=== PATIENT | male | born 1990 | race Caucasian/White ===

== ENCOUNTER 2019-07-26 18:56 | Inpatient (IN) ==
[2019-07-26 19:46] LABS: Basophils % 0.1 %; Hematocrit 49.2 % (37.5-50.1); Hemoglobin 16.6 g/dL (12.9-16.9); Immature Granulocytes % 0.3 % (0-4); Lymphocytes # 1.9 K/mcL (0.6-4.6); Lymphocytes % 20.1 %; Mean Corpuscular HGB Conc 33.7 g/dL (31.6-35.5); Mean Corpuscular Hemoglobin 29.7 pg (28.0-33.3); Mean Platelet Volume 10.5 fL (9.4-12.4); Monocytes # 0.7 K/mcL (0.0-1.3); Monocytes % 7.2 %; Platelet Count 242 K/mcL (140-400); Red Blood Count 5.59 M/mcL (4.19-5.50); Segmented Neutrophils % 72.3 %; White Blood Count 9.7 K/mcL (4.3-11.1)
[2019-07-26 19:46] LABS: Bilirubin,Urine Negative (Negative); Blood,Urine Negative (Negative); Clarity,Urine Clear (Clear); Color,Urine Dark Yellow (Yellow); Glucose,Urine (UA) Normal (Normal); Ketones,Urine 40 mg/dL (Negative); Leukocyte Esterase,Urine Negative (Negative); Nitrite,Urine Negative (Negative); Protein,Urine 100 mg/dL (Neg-Trace); Specific Gravity,Urine > 1.030 (1.010-1.025); Urobilinogen,Urine Normal (Normal)
[2019-07-26 19:47] LABS: Bacteria,Urine None Seen per hpf (None-Few); Hyaline Casts,Urine Moderate per lpf (None-Few); RBC,Urine 0-3 per hpf (0-3); Squamous Epithelial Cell,Urine Many per lpf (None-Few)
[2019-07-26 19:57] LABS: Amphetamine Screen,Urine Positive ng/mL (Cutoff=1000); Barbiturate Screen,Urine Negative ng/mL (Cutoff=200); Benzodiazepines Screen,Urine Negative ng/mL (Cutoff=200); Cannabinoid Screen,Urine Positive ng/mL (Cutoff = 50); Cocaine Screen,Urine Negative ng/mL (Cutoff= 300); Opiate Screen,Urine Negative ng/mL (Cutoff=300); Phencyclidine Screen,Urine Negative ng/mL (Cutoff=25)
[2019-07-26 20:33] LABS: Thyroid Stimulating Hormone 0.997 mcIU/mL (0.340-5.600)
[2019-07-26 20:42] LABS: Acetaminophen < 10 mcg/mL (10-20); Alanine Aminotransferase 93 Units/L (7-52); Albumin 4.8 g/dL (3.5-5.7); Albumin/Globulin Ratio 1.6 (1.1-2.2); Alkaline Phosphatase 99 Units/L (34-104); Aspartate Amino Transferase 91 Units/L (13-39); BUN/Creatinine Ratio 12 (6-26); Bilirubin,Total 0.9 mg/dL (0.3-1.0); Blood Urea Nitrogen 10 mg/dL (6-20); Calcium 9.5 mg/dL (8.6-10.3); Carbon Dioxide 16 mEq/L (23-29); Chloride 107 mEq/L (98-107); Ethanol < 10 mg/dL (Less than 10); Glucose 114 mg/dL (70-105); Osmolality,Calculated 286 (280-300); Potassium 3.6 mEq/L (3.5-5.1); Salicylate < 2.5 mg/dL (15.0-30.0); Sodium 138 mEq/L (136-145); Total Protein 7.8 g/dL (6.4-8.9); eGFR For African Americans > 60 (> 60); eGFR For Non-African Americans > 60 (> 60)
[2019-07-26] MEDS ORDERED: OLANZapine 10 MG VIAL IM ONE ×2 (22:03→23:03)
[2019-07-26] MEDS ORDERED: *HR* Water for inj. (sterile) Vial IM ONE ×2 (22:15→23:15)
[2019-07-26] MEDS ORDERED: *HR* Buprenorphine HCl 8 MG TAB.SUBL SL STA (22:40)
[2019-07-26] MEDS ORDERED: MOM Conc 10 ML UD.LIQ PO PRN (23:16)
[2019-07-26] MEDS ORDERED: Nicotine 2 MG GUM BC PRN (23:16)
[2019-07-26] MEDS ORDERED: haloperidoL 5 MG TABLET PO PRN (23:16)
[2019-07-26] MEDS ORDERED: Acetaminophen 325 MG TABLET PO PRN (23:16)
[2019-07-26] MEDS ORDERED: Mag Hydrox/Al Hydrox/Simeth 30 ML UDC PO PRN (23:16)
[2019-07-26] MEDS ORDERED: Haloperidol Lactate 5 MG/ML VIAL IM PRN (23:16)
[2019-07-26] MEDS ORDERED: traZODone 50 MG TABLET PO PRN (23:16)
[2019-07-27] MEDS: hydrOXYzine pamoate 25 MG CAPSULE PO PRN ×2 (00:20→22:50)
[2019-07-27] MEDS: Nicotine 21 MG PATCH.TD24 TD SCH (10:52)
[2019-07-27] MEDS: carvediloL 6.25 MG TABLET PO SCH ×2 (10:53→18:51)
[2019-07-27] MEDS: Loratadine 10 MG TABLET PO SCH (10:53)
[2019-07-27] MEDS: Fluticasone Propionate Nasal 50 MCG/SPRAY BOTTLE NS SCH (14:04)
[2019-07-27] MEDS: OLANZapine 5 MG TAB.RAPDIS PO SCH (14:07)
[2019-07-27] MEDS: *HR* Buprenorphine HCl 8 MG TAB.SUBL SL SCH ×2 (14:08→20:55)
[2019-07-27] MEDS ORDERED: OLANZapine 10 MG TAB.RAPDIS PO SCH (21:00)
[2019-07-28] MEDS: Loratadine 10 MG TABLET PO SCH (08:22)
[2019-07-28] MEDS: Nicotine 21 MG PATCH.TD24 TD SCH (08:22)
[2019-07-28] MEDS: OLANZapine 5 MG TAB.RAPDIS PO SCH (08:23)
[2019-07-28] MEDS: *HR* Buprenorphine HCl 8 MG TAB.SUBL SL SCH (08:23)
[2019-07-28] MEDS: carvediloL 6.25 MG TABLET PO SCH (08:23)
[2019-07-28] MEDS: Fluticasone Propionate Nasal 50 MCG/SPRAY BOTTLE NS SCH (08:25)
[2019-07-28 10:10] VITALS: BP 129/90
== END 2019-07-28 11:25 | disposition home or self-care (01) | DRG 753 ==
LOC: EMEROOARM 18:56 → 1ANU 23:12
PROVIDERS: ADMIT Psychiatry & Neurology Psychiatry; ATTEND Psychiatry & Neurology Psychiatry

== ENCOUNTER 2020-05-14 15:47 | Inpatient (IN) ==
[2020-05-14 17:06] LABS: Estimated Average Glucose 105 mg/dl; Hemoglobin A1C 5.3 %
[2020-05-14 17:13] LABS: Bilirubin,Urine Negative (Negative); Blood,Urine Negative (Negative); Clarity,Urine Clear (Clear); Color,Urine Yellow (Yellow); Glucose,Urine (UA) Normal (Normal); Ketones,Urine Negative (Negative); Leukocyte Esterase,Urine Negative (Negative); Nitrite,Urine Negative (Negative); Protein,Urine Trace mg/dL (Neg-Trace); Specific Gravity,Urine 1.028 (1.010-1.025); Urobilinogen,Urine Normal (Normal)
[2020-05-14 17:25] LABS: Acetaminophen < 10 mcg/mL (10-20); BUN/Creatinine Ratio 18 (6-26); Blood Urea Nitrogen 14 mg/dL (6-20); Calcium 9.6 mg/dL (8.6-10.3); Carbon Dioxide 27 mEq/L (23-29); Chloride 105 mEq/L (98-107); Cholesterol 169 mg/dL (< 200); Ethanol < 10 mg/dL (Less than 10); Glucose 94 mg/dL (70-105); HDL Cholesterol 57 mg/dL (40-59); LDL Cholesterol,Calculated 93 mg/dL (< 100); Osmolality,Calculated 290 (280-300); Potassium 3.6 mEq/L (3.5-5.1); Salicylate < 2.5 mg/dL (15.0-30.0); Sodium 140 mEq/L (136-145); Triglycerides 96 mg/dL (< 150); eGFR For African Americans > 60 (> 60); eGFR For Non-African Americans > 60 (> 60)
[2020-05-14 17:58] LABS: Amphetamine Screen,Urine Negative ng/mL (Cutoff=1000); Barbiturate Screen,Urine Negative ng/mL (Cutoff=200); Benzodiazepines Screen,Urine Negative ng/mL (Cutoff=200); Cannabinoid Screen,Urine Positive ng/mL (Cutoff = 50); Cocaine Screen,Urine Negative ng/mL (Cutoff= 300); Opiate Screen,Urine Negative ng/mL (Cutoff=300); Phencyclidine Screen,Urine Negative ng/mL (Cutoff=25)
[2020-05-14 18:10] LABS: Basophils % 0.3 %; Hematocrit 51.8 % (37.5-50.1); Hemoglobin 17.7 g/dL (12.9-16.9); Immature Granulocytes % 0.5 % (0-4); Lymphocytes # 2.2 K/mcL (0.6-4.6); Lymphocytes % 35.6 %; Mean Corpuscular HGB Conc 34.2 g/dL (31.6-35.5); Mean Corpuscular Hemoglobin 29.9 pg (28.0-33.3); Mean Corpuscular Volume 87.5 fL (83.0-100.0); Mean Platelet Volume 10.4 fL (9.4-12.4); Monocytes # 0.6 K/mcL (0.0-1.3); Monocytes % 9.1 %; Neutrophils # 3.3 K/mcL (1.6-8.9); Platelet Count 211 K/mcL (140-400); Red Blood Count 5.92 M/mcL (4.19-5.50); Red Cell Distribution Width 12.6 % (11.5-14.5); Segmented Neutrophils % 54.5 %; White Blood Count 6.1 K/mcL (4.3-11.1)
[2020-05-14] MEDS ORDERED: *HR* LORazepam 2 MG/ML VIAL IM PRN (21:47)
[2020-05-14] MEDS ORDERED: *HR* LORazepam 1 MG TABLET PO PRN (21:47)
[2020-05-14] MEDS ORDERED: MOM Conc 10 ML UD.LIQ PO PRN (21:47)
[2020-05-14] MEDS ORDERED: Haloperidol Lactate 5 MG/ML VIAL IM PRN (21:47)
[2020-05-14] MEDS ORDERED: Mag Hydrox/Al Hydrox/Simeth 30 ML UDC PO PRN (21:47)
[2020-05-14] MEDS ORDERED: haloperidoL 5 MG TABLET PO PRN (21:47)
[2020-05-14] MEDS: hydrOXYzine pamoate 25 MG CAPSULE PO PRN (23:21)
[2020-05-14] MEDS: traZODone 50 MG TABLET PO PRN (23:21)
[2020-05-15] MEDS: Nicotine 21 MG PATCH.TD24 TD SCH (08:22)
[2020-05-15] MEDS ORDERED: *HR* Buprenorphine HCl 8 MG TAB.SUBL SL SCH (09:00)
[2020-05-15] MEDS: OLANZapine 10 MG TAB.RAPDIS PO SCH ×2 (11:01→20:05)
[2020-05-15] MEDS: lisinopriL 10 MG TABLET PO SCH (11:01)
[2020-05-15] MEDS: Loratadine 10 MG TABLET PO SCH (11:03)
[2020-05-15] MEDS: Fluticasone Propionate Nasal 50 MCG/SPRAY BOTTLE NS SCH (11:05)
[2020-05-15] MEDS: carvediloL 6.25 MG TABLET PO SCH (16:23)
[2020-05-15] MEDS: Acetaminophen 325 MG TABLET PO PRN (17:40)
[2020-05-15] MEDS: *HR* Buprenorphine HCl 8 MG TAB.SUBL SL SCH (20:05)
[2020-05-15] MEDS: hydrOXYzine pamoate 25 MG CAPSULE PO PRN (23:06)
[2020-05-15] MEDS: traZODone 50 MG TABLET PO PRN (23:06)
[2020-05-16] MEDS: carvediloL 6.25 MG TABLET PO SCH ×2 (08:45→17:27)
[2020-05-16] MEDS: Nicotine 21 MG PATCH.TD24 TD SCH (08:46)
[2020-05-16] MEDS: Loratadine 10 MG TABLET PO SCH (08:47)
[2020-05-16] MEDS: lisinopriL 10 MG TABLET PO SCH (08:48)
[2020-05-16] MEDS: *HR* Buprenorphine HCl 8 MG TAB.SUBL SL SCH ×2 (08:48→20:14)
[2020-05-16] MEDS: Fluticasone Propionate Nasal 50 MCG/SPRAY BOTTLE NS SCH (08:48)
[2020-05-16] MEDS: OLANZapine 10 MG TAB.RAPDIS PO SCH ×2 (08:49→20:14)
[2020-05-16] MEDS ORDERED: Ibuprofen 400 MG TABLET PO PRN (17:10)
[2020-05-16] MEDS: Acetaminophen 325 MG TABLET PO PRN (19:05)
[2020-05-16] MEDS: hydrOXYzine pamoate 25 MG CAPSULE PO PRN (19:06)
[2020-05-16] MEDS: traZODone 50 MG TABLET PO PRN (20:13)
[2020-05-17] MEDS: hydrOXYzine pamoate 25 MG CAPSULE PO PRN (03:58)
[2020-05-17] MEDS: Loratadine 10 MG TABLET PO SCH (08:14)
[2020-05-17] MEDS: lisinopriL 10 MG TABLET PO SCH (08:15)
[2020-05-17] MEDS: carvediloL 6.25 MG TABLET PO SCH (08:16)
[2020-05-17] MEDS: OLANZapine 10 MG TAB.RAPDIS PO SCH (08:16)
[2020-05-17] MEDS: *HR* Buprenorphine HCl 8 MG TAB.SUBL SL SCH (08:16)
[2020-05-17] MEDS: Fluticasone Propionate Nasal 50 MCG/SPRAY BOTTLE NS SCH (08:18)
[2020-05-17] MEDS: Nicotine 21 MG PATCH.TD24 TD SCH (08:18)
[2020-05-17 09:16] VITALS: BP 127/84
[2020-05-17] MEDS: Acetaminophen 325 MG TABLET PO PRN (11:37)
== END 2020-05-17 13:30 | disposition home or self-care (01) ==
LOC: EMEROOARM 15:47 → 1ANU 21:45
PROVIDERS: ADMIT Psychiatry & Neurology Psychiatry; ATTEND Psychiatry & Neurology Psychiatry

== ENCOUNTER 2021-11-28 15:20 | Inpatient (IN) ==
[2021-11-28 16:50] LABS: Amphetamine Screen,Urine Negative ng/mL (Cutoff=1000); Barbiturate Screen,Urine Negative ng/mL (Cutoff=200); Benzodiazepines Screen,Urine Negative ng/mL (Cutoff=200); Cannabinoid Screen,Urine Positive ng/mL (Cutoff = 50); Cocaine Screen,Urine Negative ng/mL (Cutoff= 300); Opiate Screen,Urine Negative ng/mL (Cutoff=300); Phencyclidine Screen,Urine Negative ng/mL (Cutoff=25)
[2021-11-28 17:07] LABS: Amorphous Sediment,Urine Few per hpf (None-Few); Bacteria,Urine Few per hpf (None-Few); Bilirubin,Urine Negative (Negative); Blood,Urine Negative (Negative); Clarity,Urine Turbid (Clear); Color,Urine Light-Yellow (Yellow); Glucose,Urine (UA) 100 mg/dL (Normal); Hyaline Casts,Urine Few per lpf (None Seen); Ketones,Urine 60 mg/dL (Negative); Leukocyte Esterase,Urine Negative (Negative); Mucus,Urine Few per lpf (None-Few); Nitrite,Urine Negative (Negative); PH,Urine 5.5 pH Units (5.0-8.0); Protein,Urine 50 mg/dL (Neg-Trace); RBC,Urine 0-3 per hpf (0-3); Specific Gravity,Urine 1.024 (1.010-1.025); Urobilinogen,Urine Normal (Normal); WBC,Urine 0-3 per hpf (0-3)
[2021-11-28 17:16] LABS: Basophils % 0.1 %; Hematocrit 51.7 % (37.5-50.1); Hemoglobin 17.4 g/dL (12.9-16.9); Immature Granulocytes % 0.7 % (0-4); Lymphocytes # 0.7 K/mcL (0.6-4.6); Lymphocytes % 5.5 %; Mean Corpuscular HGB Conc 33.7 g/dL (31.6-35.5); Mean Corpuscular Hemoglobin 30.2 pg (28.0-33.3); Mean Corpuscular Volume 89.6 fL (83.0-100.0); Mean Platelet Volume 10.7 fL (9.4-12.4); Monocytes # 0.4 K/mcL (0.0-1.3); Monocytes % 3.1 %; Neutrophils # 11.1 K/mcL (1.6-8.9); Platelet Count 180 K/mcL (140-400); Red Blood Count 5.77 M/mcL (4.19-5.50); Red Cell Distribution Width 12.5 % (11.5-14.5); Segmented Neutrophils % 90.6 %; White Blood Count 12.3 K/mcL (4.3-11.1)
[2021-11-28 17:19] LABS: VBG HCO3 20 mEq/L (21-27); VBG PCO2 43 mmHg (41-51); VBG PH 7.28 pH Units (7.32-7.42); VBG PO2 53 mmHg (25-50)
[2021-11-28 17:37] LABS: Acetaminophen < 10 mcg/mL (10-20); Alanine Aminotransferase 45 Units/L (7-52); Albumin 4.4 g/dL (3.5-5.7); Albumin/Globulin Ratio 1.7 (1.1-2.2); Alkaline Phosphatase 114 Units/L (34-104); Aspartate Amino Transferase 34 Units/L (13-39); BUN/Creatinine Ratio 8 (6-26); Bilirubin,Direct 0.2 mg/dL (0.0-0.2); Bilirubin,Indirect 0.4 mg/dL (0.0-1.0); Bilirubin,Total 0.6 mg/dL (0.3-1.0); Blood Urea Nitrogen 9 mg/dL (6-20); Calcium 9.3 mg/dL (8.6-10.3); Carbon Dioxide 20 mEq/L (23-29); Chloride 107 mEq/L (98-107); Ethanol < 10 mg/dL (Less than 10); Globulin 2.6 g/dL (2.4-3.5); Glucose 185 mg/dL (70-105); Osmolality,Calculated 295 (280-300); Potassium 3.5 mEq/L (3.5-5.1); Salicylate < 2.5 mg/dL (15.0-30.0); Sodium 141 mEq/L (136-145)
[2021-11-28 17:49] LABS: Thyroid Stimulating Hormone 0.326 mcIU/mL (0.340-5.600)
[2021-11-28] MEDS ORDERED: 0.9 % Sodium Chloride 1,000 ML IVC ONE (18:28)
[2021-11-28 18:34] LABS: Beta-Hydroxybutyric Acid 0.15 mmol/L (0.02-0.27)
[2021-11-28 18:51] LABS: Triiodothyronine (T3) Free 3.26 pg/mL (2.50-3.90)
[2021-11-28 19:27] LABS: Troponin I < 0.03 ng/mL (< 0.04)
[2021-11-28 20:44] LABS: Influenza A PCR Negative (Negative); Influenza B PCR Negative (Negative); Resp. Syncytial Virus PCR Negative (Negative)
[2021-11-28 20:50] LABS: SARS-CoV-2 by PCR (In House) Negative (Negative)
[2021-11-28] MEDS ORDERED: *HR* LORazepam 2 MG/ML VIAL ONE ×2 (21:15→21:16)
[2021-11-28] MEDS ORDERED: levETIRAcetam 1,000 MG in 0.9 % Sodium Chloride 100 ML IVPB ONE (21:39)
[2021-11-28 21:51] LABS: VBG HCO3 10 mEq/L (21-27); VBG PCO2 38 mmHg (41-51); VBG PH 7.03 pH Units (7.32-7.42); VBG PO2 115 mmHg (25-50)
[2021-11-28 21:54] LABS: ABG Base Excess -16 mEq/L (-2 to 3); ABG HCO3 11 mEq/L (21-27); ABG Oxygen Saturation 97 % (95-98); ABG PCO2 29 mmHg (35-45); ABG PH 7.17 pH Units (7.32-7.45); ABG PO2 117 mmHg (85-104); ABG TCO2 12 mEq/L (20-26)
[2021-11-28 22:08] LABS: Calcium 9.4 mg/dL (8.6-10.3); Magnesium 2.5 mg/dL (1.6-2.6); Phosphorous 4.6 mg/dL (2.7-4.5); Potassium 3.4 mEq/L (3.5-5.1)
[2021-11-28] MEDS ORDERED: Naloxone 0.4 MG/ML INJ IVP PRN (23:05)
[2021-11-28] MEDS ORDERED: Ringers Solution, Lactated 1,000 ML IVC ONE (23:15)
[2021-11-28] MEDS ORDERED: *HR* LORazepam 2 MG/ML VIAL IVP PRN (23:28)
[2021-11-28] MEDS: Ondansetron 4 MG/2 ML VIAL IVP PRN (23:42)
[2021-11-29] MEDS ORDERED: Sodium Bicarbonate 150 MEQ in Water for inj. (sterile) 1,000 ML IVC SCH
[2021-11-29] MEDS ORDERED: Iopamidol - 370 500 ML MLS IVP ONE (00:12)
[2021-11-29] MEDS ORDERED: Gadolinium Contrast Agent (WT Based) IV PRN ×2 (00:33→12:00)
[2021-11-29] MEDS ORDERED: Potassium Chloride Elixir 20 MEQ/15 ML UDC PO ONE (00:47)
[2021-11-29] MEDS ORDERED: Metoclopramide 10 MG/2 ML VIAL IVP ONE (01:14)
[2021-11-29 01:51] LABS: Basophils % 0.1 %; Hematocrit 44.2 % (37.5-50.1); Immature Granulocytes % 0.6 % (0-4); Lymphocytes # 1.4 K/mcL (0.6-4.6); Lymphocytes % 10.9 %; Mean Corpuscular HGB Conc 35.5 g/dL (31.6-35.5); Mean Corpuscular Hemoglobin 30.9 pg (28.0-33.3); Mean Platelet Volume 10.7 fL (9.4-12.4); Monocytes # 0.7 K/mcL (0.0-1.3); Monocytes % 5.2 %; Neutrophils # 10.4 K/mcL (1.6-8.9); Platelet Count 187 K/mcL (140-400); Red Blood Count 5.08 M/mcL (4.19-5.50); Red Cell Distribution Width 12.3 % (11.5-14.5); Segmented Neutrophils % 83.2 %; White Blood Count 12.4 K/mcL (4.3-11.1)
[2021-11-29 01:55] LABS: Hemoglobin 15.7 g/dL (12.9-16.9)
[2021-11-29 02:06] LABS: BUN/Creatinine Ratio 8 (6-26); Blood Urea Nitrogen 9 mg/dL (6-20); Calcium 8.6 mg/dL (8.6-10.3); Carbon Dioxide 19 mEq/L (23-29); Chloride 110 mEq/L (98-107); Glucose 107 mg/dL (70-105); Osmolality,Calculated 289 (280-300); Potassium 3.8 mEq/L (3.5-5.1); Sodium 140 mEq/L (136-145)
[2021-11-29 02:08] LABS: VBG HCO3 19 mEq/L (21-27); VBG PCO2 28 mmHg (41-51); VBG PH 7.45 pH Units (7.32-7.42); VBG PO2 152 mmHg (25-50)
[2021-11-29 03:22] LABS: Phosphorous 2.2 mg/dL (2.7-4.5)
[2021-11-29 03:37] LABS: Procalcitonin 0.06 ng/mL (0.00-0.15)
[2021-11-29] MEDS: Ringers Solution, Lactated 1,000 ML IVC SCH ×2 (06:36→09:01)
[2021-11-29] MEDS: levETIRAcetam 250 MG TABLET PO SCH ×2 (06:47→18:13)
[2021-11-29] MEDS ORDERED: Buprenorphine Hcl/Naloxone 8-2 MG PO SCH (09:00)
[2021-11-29] MEDS: OLANZapine 10 MG TAB.RAPDIS PO SCH ×2 (09:01→19:59)
[2021-11-29] MEDS ORDERED: *HR* LORazepam 2 MG/ML VIAL IVP ONE (16:16)
[2021-11-29] MEDS: Ondansetron 4 MG/2 ML VIAL IVP PRN (18:01)
[2021-11-29] MEDS: *HR* Heparin 5,000 UNIT/ML VIAL SQ SCH (18:12)
[2021-11-29] MEDS: Nicotine 7 MG PATCH.TD24 TD SCH (20:57)
[2021-11-29] MEDS: Buprenorphine Hcl/Naloxone 8-2 MG PO SCH (20:57)
[2021-11-30 03:38] LABS: Hematocrit 44.5 % (37.5-50.1); Hemoglobin 15.1 g/dL (12.9-16.9); Mean Corpuscular HGB Conc 33.9 g/dL (31.6-35.5); Mean Corpuscular Hemoglobin 30.6 pg (28.0-33.3); Mean Corpuscular Volume 90.3 fL (83.0-100.0); Mean Platelet Volume 10.8 fL (9.4-12.4); Platelet Count 158 K/mcL (140-400); Red Blood Count 4.93 M/mcL (4.19-5.50); Red Cell Distribution Width 12.7 % (11.5-14.5); White Blood Count 8.5 K/mcL (4.3-11.1)
[2021-11-30 03:53] LABS: BUN/Creatinine Ratio 8 (6-26); Blood Urea Nitrogen 8 mg/dL (6-20); Calcium 8.6 mg/dL (8.6-10.3); Carbon Dioxide 28 mEq/L (23-29); Chloride 110 mEq/L (98-107); Glucose 98 mg/dL (70-105); Osmolality,Calculated 292 (280-300); Potassium 3.6 mEq/L (3.5-5.1); Sodium 142 mEq/L (136-145)
[2021-11-30] MEDS: levETIRAcetam 250 MG TABLET PO SCH (05:59)
[2021-11-30] MEDS: *HR* Heparin 5,000 UNIT/ML VIAL SQ SCH (05:59)
[2021-11-30] MEDS: OLANZapine 10 MG TAB.RAPDIS PO SCH (07:57)
[2021-11-30] MEDS: Buprenorphine Hcl/Naloxone 8-2 MG PO SCH (07:57)
[2021-11-30] MEDS: Nicotine 7 MG PATCH.TD24 TD SCH (07:57)
[2021-11-30] MEDS ORDERED: Thiamine (B-1) 100 MG TABLET PO SCH (09:00)
[2021-11-30 10:43] VITALS: BP 127/66; PULSE 80; TEMP 98.3; O2SAT 97
== END 2021-11-30 12:00 | disposition home or self-care (01) | DRG 53 ==
LOC: 2NNU 15:20 → EMEROOARM 15:20 → SUATTDRO 22:47 → 2NNU 23:38 → SUATTDRO 11-29 13:45
PROVIDERS: ADMIT Internal Medicine; ATTEND Internal Medicine

== ENCOUNTER 2021-12-10 15:38 | Observation (INO) ==
[2021-12-10] MEDS ORDERED: 0.9 % Sodium Chloride 1,000 ML IVC ONE (20:50)
[2021-12-10] MEDS ORDERED: levETIRAcetam 1,000 MG in 0.9 % Sodium Chloride 100 ML IVPB ONE (20:50)
[2021-12-10 21:48] LABS: Basophils % 0.1 %; Hematocrit 51.4 % (37.5-50.1); Hemoglobin 17.8 g/dL (12.9-16.9); Immature Granulocytes % 0.5 % (0-4); Lymphocytes # 2.7 K/mcL (0.6-4.6); Lymphocytes % 33.8 %; Mean Corpuscular HGB Conc 34.6 g/dL (31.6-35.5); Mean Corpuscular Hemoglobin 30.8 pg (28.0-33.3); Mean Corpuscular Volume 88.9 fL (83.0-100.0); Mean Platelet Volume 10.6 fL (9.4-12.4); Monocytes # 0.5 K/mcL (0.0-1.3); Monocytes % 6.5 %; Neutrophils # 4.6 K/mcL (1.6-8.9); Platelet Count 188 K/mcL (140-400); Red Blood Count 5.78 M/mcL (4.19-5.50); Red Cell Distribution Width 12.3 % (11.5-14.5); Segmented Neutrophils % 59.1 %; White Blood Count 7.9 K/mcL (4.3-11.1)
[2021-12-10 21:54] LABS: Bacteria,Urine Few per hpf (None-Few); Bilirubin,Urine Small (Negative); Blood,Urine Negative (Negative); Clarity,Urine Clear (Clear); Color,Urine Yellow (Yellow); Glucose,Urine (UA) Normal (Normal); Ketones,Urine 60 mg/dL (Negative); Leukocyte Esterase,Urine Negative (Negative); Mucus,Urine Many per lpf (None-Few); Nitrite,Urine Negative (Negative); Protein,Urine 30 mg/dL (Neg-Trace); RBC,Urine 0-3 per hpf (0-3); Specific Gravity,Urine > 1.030 (1.010-1.025); WBC,Urine 0-3 per hpf (0-3)
[2021-12-10 22:03] LABS: Amphetamine Screen,Urine Positive ng/mL (Cutoff=1000); Barbiturate Screen,Urine Negative ng/mL (Cutoff=200); Benzodiazepines Screen,Urine Negative ng/mL (Cutoff=200); Cannabinoid Screen,Urine Positive ng/mL (Cutoff = 50); Cocaine Screen,Urine Negative ng/mL (Cutoff= 300); Opiate Screen,Urine Negative ng/mL (Cutoff=300); Phencyclidine Screen,Urine Negative ng/mL (Cutoff=25)
[2021-12-10 22:05] LABS: Alanine Aminotransferase 76 Units/L (7-52); Albumin 4.4 g/dL (3.5-5.7); Albumin/Globulin Ratio 1.6 (1.1-2.2); Alkaline Phosphatase 87 Units/L (34-104); Aspartate Amino Transferase 46 Units/L (13-39); BUN/Creatinine Ratio 13 (6-26); Blood Urea Nitrogen 9 mg/dL (6-20); Calcium 9.2 mg/dL (8.6-10.3); Carbon Dioxide 24 mEq/L (23-29); Chloride 102 mEq/L (98-107); Globulin 2.8 g/dL (2.4-3.5); Glucose 83 mg/dL (70-105); Osmolality,Calculated 280 (280-300); Potassium 4.8 mEq/L (3.5-5.1); Sodium 136 mEq/L (136-145); Total Protein 7.2 g/dL (6.4-8.9)
[2021-12-10 23:59] LABS: ABG Base Excess 0 mEq/L (-2 to 3); ABG HCO3 25 mEq/L (21-27); ABG Oxygen Saturation 97 % (95-98); ABG PCO2 43 mmHg (35-45); ABG PH 7.38 pH Units (7.32-7.45); ABG PO2 93 mmHg (85-104); ABG TCO2 26 mEq/L (20-26)
[2021-12-11] MEDS ORDERED: Melatonin 3 MG TABLET PO PRN (01:21)
[2021-12-11] MEDS ORDERED: Naloxone 0.4 MG/ML INJ IVP PRN (01:21)
[2021-12-11] MEDS ORDERED: Ondansetron ODT 4 MG TAB.RAPDIS SL PRN (01:21)
[2021-12-11] MEDS ORDERED: lisinopriL 20 MG TABLET PO SCH (09:00)
[2021-12-11] MEDS: OLANZapine 10 MG TAB.RAPDIS PO SCH ×2 (11:11→21:30)
[2021-12-11] MEDS: levETIRAcetam 250 MG TABLET PO SCH ×2 (11:11→18:32)
[2021-12-11] MEDS: lisinopriL 10 MG TABLET PO SCH (11:12)
[2021-12-11] MEDS: Buprenorphine Hcl/Naloxone Hcl [Buprenorphine-Naloxone 8/2 mg] PO SCH (18:34)
[2021-12-12 03:50] LABS: Hematocrit 48.9 % (37.5-50.1); Hemoglobin 16.7 g/dL (12.9-16.9); Mean Corpuscular HGB Conc 34.2 g/dL (31.6-35.5); Mean Corpuscular Hemoglobin 30.5 pg (28.0-33.3); Mean Corpuscular Volume 89.4 fL (83.0-100.0); Mean Platelet Volume 10.6 fL (9.4-12.4); Platelet Count 186 K/mcL (140-400); Red Blood Count 5.47 M/mcL (4.19-5.50); Red Cell Distribution Width 12.5 % (11.5-14.5); White Blood Count 7.4 K/mcL (4.3-11.1)
[2021-12-12] MEDS: levETIRAcetam 250 MG TABLET PO SCH (05:46)
[2021-12-12] MEDS: OLANZapine 10 MG TAB.RAPDIS PO SCH (09:04)
[2021-12-12] MEDS: Buprenorphine Hcl/Naloxone Hcl [Buprenorphine-Naloxone 8/2 mg] PO SCH (09:04)
[2021-12-12] MEDS: lisinopriL 10 MG TABLET PO SCH (09:04)
[2021-12-12 10:13] VITALS: BP 122/81; PULSE 70; TEMP 98.5; O2SAT 93
== END 2021-12-12 12:46 | disposition home or self-care (01) ==
LOC: 3BNU 15:38 → EMEROOARM 15:38 → SUATTDRO 12-11 11:42 → 3BNU 12-11 12:25
PROVIDERS: ADMIT Internal Medicine; ATTEND Internal Medicine